=== PATIENT | male | born 1940 | race Caucasian/White ===

== ENCOUNTER 2021-03-28 21:19 | Inpatient (IN) | payer OTHER ==
[~2021-03-28] VITALS: Ht 165.1 cm; Wt 57.3 kg
[2021-03-28] MEDS ORDERED: ALBUTEROL SULF 2.5 MG/0.5ML(0.5%) NEB SOLN ONE (21:42)
[2021-03-28 22:08] LABS: Basophils # (auto) 0.1 10 ^3/uL (0-0.2); Basophils % (auto) 0.4 % (0.0-2.0); Eosinophils # (auto) 0.1 10 ^3/uL (0-0.8); Eosinophils % (auto) 0.4 % (0.0-7.0); Hematocrit 44.4 % (41.0-53.0); Hemoglobin 14.7 g/dL (13.5-17.5); Lymphocytes # (auto) 4.2 10 ^3/uL (0.4-5.4); Lymphocytes % (auto) 21.1 % (10.0-50.0); Mean Corpuscular Hemoglobin 31.4 pg (28.0-32.0); Mean Corpuscular Hgb Conc. 33.2 g/dL (32.0-36.0); Mean Corpuscular Volume 94.8 fL (80.0-100.0); Monocytes # (auto) 1.4 10 ^3/uL (0-1.3); Neutrophils # (auto) 14.2 10 ^3/uL (1.6-8.6); Neutrophils % (auto) 71.1 % (37.0-80.0); Red Blood Cells 4.68 10^6/uL (4.5-5.90); Red Cell Distribution Width 15.2 % (11.8-14.3); White Blood Cell 19.9 10^3/uL (4.4-10.8)
[2021-03-28 22:15] LABS: INR 1.06 (0.9-1.15); Partial Thromboplastin Time 25.4 sec (23.0-31.2)
[2021-03-28] MEDS ORDERED: cefTRIAXone 1GM/50ML D5W 50 ML IV ONE ×2 (22:15→22:17)
[2021-03-28] MEDS ORDERED: methylPREDNISolone SOD SUCC 125 MG/2 ML VL IV ONE (22:15)
[2021-03-28] MEDS ORDERED: methylPREDNISolone SOD SUCC 125 MG/2 ML VL ONE (22:16)
[2021-03-28 22:20] LABS: Albumin 3.2 g/dL (3.4-5.0); Calcium 8.7 mg/dL (8.5-10.1); Magnesium 2.7 mg/dL (1.6-2.6)
[2021-03-28 22:25] LABS: BUN/Creatinine Ratio 12.9; Bilirubin, Total 0.8 mg/dL (0.2-1.0); Total Protein 6.8 g/dL (6.4-8.2)
[2021-03-28] MEDS: MAGNESIUM SULFATE 1GM/100ML 100 ML IV SCH (23:45)
[2021-03-29] VITALS (57 sets, daily range): BP systolic 82–139; BP diastolic 41–74
[2021-03-29] MEDS ORDERED: SUCCINYLCHOLINE CHLORIDE 20 MG/ML 10ML VIAL IV ONE (00:45)
[2021-03-29] MEDS ORDERED: ETOMIDATE (2MG/ML) 20ML VIAL IV ONE (00:45)
[2021-03-29] MEDS: MAGNESIUM SULFATE 1GM/100ML 100 ML IV SCH (00:45)
[2021-03-29] MEDS: MIDAZOLAM DRIP 50 mg/50mL 50 ML IV SCH ×3 (00:45→20:37)
[2021-03-29] MEDS ORDERED: NOREPINEPHRINE 8 MG/250ML KIT 250 ML IV ONE (01:48)
[2021-03-29] MEDS: PROPOFOL 100 ML IV SCH (02:22)
[2021-03-29] MEDS: NOREPINEPHRINE 8 MG/250ML KIT 250 ML IV SCH ×2 (02:22→20:38)
[2021-03-29] MEDS ORDERED: SODIUM CHLORIDE 0.9% 1,000 ML IV SCH (02:30)
[2021-03-29] MEDS ORDERED: DEXTROSE (50%) 50ML SYRG IV PRN (02:30)
[2021-03-29] MEDS ORDERED: NITROGLYCERIN 0.4 MG SL TAB SL PRN (02:30)
[2021-03-29] MEDS ORDERED: MORPHINE SULFATE INJECTION 2 MG/ML SYRG IV PRN (02:30)
[2021-03-29] MEDS ORDERED: ONDANSETRON HCL 4 MG/2 ML VIAL IV PRN (02:30)
[2021-03-29] MEDS: AZITHROMYCIN 500MG/ 250ML 250 ML IV SCH (03:00)
[2021-03-29] MEDS ORDERED: AMIODARONE 450mg/250ml AE 250 ML IV ONE (04:03)
[2021-03-29] MEDS ORDERED: AMIODARONE 450mg/250ml AE 250 ML IV SCH (04:15)
[2021-03-29] MEDS ORDERED: HEPARIN SODIUM (PORCINE) 5000 UNITS/ML 1ML VIAL SC ONE (04:15)
[2021-03-29 06:57] LABS: Basophils # (auto) 0 10 ^3/uL (0-0.2); Basophils % (auto) 0.1 % (0.0-2.0); Eosinophils # (auto) 0 10 ^3/uL (0-0.8); Hematocrit 42.5 % (41.0-53.0); Hemoglobin 13.9 g/dL (13.5-17.5); Lymphocytes # (auto) 0.6 10 ^3/uL (0.4-5.4); Lymphocytes % (auto) 2.6 % (10.0-50.0); Mean Corpuscular Hemoglobin 31.1 pg (28.0-32.0); Mean Corpuscular Hgb Conc. 32.8 g/dL (32.0-36.0); Mean Corpuscular Volume 94.8 fL (80.0-100.0); Monocytes # (auto) 0.8 10 ^3/uL (0-1.3); Monocytes % (auto) 3.2 % (0.0-12.0); Neutrophils # (auto) 22.5 10 ^3/uL (1.6-8.6); Neutrophils % (auto) 94.1 % (37.0-80.0); Red Blood Cells 4.48 10^6/uL (4.5-5.90); Red Cell Distribution Width 15.2 % (11.8-14.3)
[2021-03-29 07:12] LABS: Albumin 3.1 g/dL (3.4-5.0); BUN/Creatinine Ratio 15.2; Potassium 4.4 mmol/L (3.5-5.1)
[2021-03-29 07:15] LABS: Bilirubin, Total 0.8 mg/dL (0.2-1.0); Total Protein 6.2 g/dL (6.4-8.2)
[2021-03-29 07:40] LABS: Urine Bacteria NONE SEEN /hpf (None Seen); Urine Blood 1+ /uL (Negative); Urine Budding Yeast FEW /hpf (None Seen); Urine Hyaline Cast FEW /lpf (0 - 2); Urine Specific Gravity 1.017 (1.001-1.035); Urine WBC 38 /hpf (0 - 3)
[2021-03-29] MEDS: ACCU-CHEK COMFORT CURVE STRIP VI SCH ×4 (08:02→22:00)
[2021-03-29] MEDS: InsuLIN REG 1unit/0.01ml Soln (100units/ml) SC SCH ×4 (09:00→20:30)
[2021-03-29] MEDS ORDERED: HEPARIN SODIUM (PORCINE) 5000 UNITS/ML 1ML VIAL SC SCH ×2 (10:00→22:00)
[2021-03-29] MEDS: AMIODARONE 450mg/250ml AE 250 ML IV SCH (11:31)
[2021-03-29] MEDS: FAMOTIDINE (10MG/ML) 2ML VL IV SCH ×2 (11:32→21:11)
[2021-03-29] MEDS: SODIUM CHLORIDE 0.9% 1,000 ML IV SCH (14:37)
[2021-03-30] VITALS (96 sets, daily range): BP systolic 97–136; BP diastolic 44–73
[2021-03-30] MEDS: MIDAZOLAM DRIP 50 mg/50mL 50 ML IV SCH ×5 (00:23→23:45)
[2021-03-30] MEDS: PROPOFOL 100 ML IV SCH ×2 (00:26→21:33)
[2021-03-30] MEDS: AMIODARONE 450mg/250ml AE 250 ML IV SCH ×2 (03:09→16:10)
[2021-03-30] MEDS: NOREPINEPHRINE 8 MG/250ML KIT 250 ML IV SCH (03:10)
[2021-03-30] MEDS: SODIUM CHLORIDE 0.9% 1,000 ML IV SCH ×2 (03:15→16:10)
[2021-03-30] MEDS: AZITHROMYCIN 500MG/ 250ML 250 ML IV SCH (03:29)
[2021-03-30] MEDS: ACCU-CHEK COMFORT CURVE STRIP VI SCH ×4 (04:30→21:24)
[2021-03-30] MEDS: InsuLIN REG 1unit/0.01ml Soln (100units/ml) SC SCH ×4 (05:36→21:24)
[2021-03-30 07:21] LABS: Basophils # (auto) 0.1 10 ^3/uL (0-0.2); Basophils % (auto) 0.4 % (0.0-2.0); Eosinophils # (auto) 0 10 ^3/uL (0-0.8); Hematocrit 39.1 % (41.0-53.0); Hemoglobin 13.5 g/dL (13.5-17.5); Lymphocytes # (auto) 0.7 10 ^3/uL (0.4-5.4); Lymphocytes % (auto) 3.1 % (10.0-50.0); Mean Corpuscular Hemoglobin 32.1 pg (28.0-32.0); Mean Corpuscular Hgb Conc. 34.6 g/dL (32.0-36.0); Mean Corpuscular Volume 92.8 fL (80.0-100.0); Monocytes # (auto) 1.1 10 ^3/uL (0-1.3); Monocytes % (auto) 5.4 % (0.0-12.0); Neutrophils # (auto) 19.1 10 ^3/uL (1.6-8.6); Neutrophils % (auto) 91.1 % (37.0-80.0); Nucleated Red Blood Cells % 0.1 %; Red Blood Cells 4.21 10^6/uL (4.5-5.90); Red Cell Distribution Width 15.2 % (11.8-14.3)
[2021-03-30 07:41] LABS: Potassium 4.1 mmol/L (3.5-5.1)
[2021-03-30 07:46] LABS: Albumin 2.7 g/dL (3.4-5.0); BUN/Creatinine Ratio 18.1; Calcium 7.7 mg/dL (8.5-10.1)
[2021-03-30 07:49] LABS: Bilirubin, Total 0.4 mg/dL (0.2-1.0)
[2021-03-30] MEDS: ACETAMINOPHEN 650 MG RECT SUPP PR PRN (09:06)
[2021-03-30] MEDS: FAMOTIDINE (10MG/ML) 2ML VL IV SCH ×2 (09:06→21:23)
[2021-03-30] MEDS ORDERED: VANCOMYCIN PER PHARMACY 0 MG IV SCH (15:15)
[2021-03-30] MEDS ORDERED: VANCOMYCIN 1GM/250ML 250 ML IV ONE (15:15)
[2021-03-31] VITALS (89 sets, daily range): BP systolic 89–138; BP diastolic 44–63
[2021-03-31] MEDS: SODIUM CHLORIDE 0.9% 1,000 ML IV SCH ×2 (04:15→18:00)
[2021-03-31 04:26] LABS: Basophils # (auto) 0 10 ^3/uL (0-0.2); Basophils % (auto) 0.2 % (0.0-2.0); Eosinophils # (auto) 0 10 ^3/uL (0-0.8); Hemoglobin 13.2 g/dL (13.5-17.5); Lymphocytes # (auto) 0.7 10 ^3/uL (0.4-5.4); Mean Corpuscular Hemoglobin 31.3 pg (28.0-32.0); Mean Corpuscular Hgb Conc. 33.7 g/dL (32.0-36.0); Mean Corpuscular Volume 92.9 fL (80.0-100.0); Monocytes # (auto) 1.5 10 ^3/uL (0-1.3); Monocytes % (auto) 8.5 % (0.0-12.0); Neutrophils # (auto) 15.4 10 ^3/uL (1.6-8.6); Neutrophils % (auto) 87.3 % (37.0-80.0); Red Cell Distribution Width 15.4 % (11.8-14.3); White Blood Cell 17.6 10^3/uL (4.4-10.8)
[2021-03-31 05:43] LABS: Potassium 3.8 mmol/L (3.5-5.1)
[2021-03-31 05:44] LABS: Bilirubin, Total 0.4 mg/dL (0.2-1.0); Calcium 7.3 mg/dL (8.5-10.1); Total Protein 5.3 g/dL (6.4-8.2)
[2021-03-31 05:45] LABS: Albumin 2.3 g/dL (3.4-5.0); Magnesium 3.1 mg/dL (1.6-2.6)
[2021-03-31] MEDS: MIDAZOLAM DRIP 50 mg/50mL 50 ML IV SCH ×3 (05:55→23:05)
[2021-03-31] MEDS: ACCU-CHEK COMFORT CURVE STRIP VI SCH ×4 (05:58→22:09)
[2021-03-31] MEDS: InsuLIN REG 1unit/0.01ml Soln (100units/ml) SC SCH ×4 (06:07→22:00)
[2021-03-31] MEDS: HEPARIN SODIUM (PORCINE) 5000 UNITS/ML 1ML VIAL SC SCH ×2 (10:00→22:14)
[2021-03-31] MEDS: AZITHROMYCIN 500MG/ 250ML 250 ML IV SCH (10:51)
[2021-03-31] MEDS: FAMOTIDINE (10MG/ML) 2ML VL IV SCH ×2 (10:51→22:09)
[2021-03-31 11:36] LABS: Sodium Urine 48 mmol/L (40-220)
[2021-03-31 11:38] LABS: Creatinine, Urine 88 mg/dL (30.0-125.0); Protein, Urine 25.7 mg/dL (0.0-11.9)
[2021-03-31] MEDS ORDERED: IODIXANOL 320MG/ML 100ML BTL IV ONE ×2 (11:38→13:16)
[2021-03-31] MEDS ORDERED: HEPARIN IN NS 1000Units/500mL 1,500 ML ONE (11:38)
[2021-03-31] MEDS ORDERED: LIDOCAINE 2%HCL (LOCAL ANESTH.) INJ 20ML MDV ONE (11:38)
[2021-03-31] MEDS ORDERED: VERAPAMIL 2.5MG/ML INJ 2ML VIAL IV ONE (12:12)
[2021-03-31] MEDS ORDERED: NITROGLYCERIN 5MG/ML 10ML VIAL IV ONE (12:12)
[2021-03-31] MEDS ORDERED: HEPARIN SODIUM (PORCINE) 5000 UNITS/ML 1ML VIAL ONE (12:12)
[2021-03-31] MEDS ORDERED: SODIUM CHL 0.9% 50 ML ONE (12:18)
[2021-03-31] MEDS ORDERED: ANGIOMAX 250 MG VIAL IV ONE (12:18)
[2021-03-31] MEDS ORDERED: VANCOMYCIN 1GM/250ML 250 ML IV SCH (16:00)
[2021-03-31] MEDS: PROPOFOL 100 ML IV SCH (18:34)
[2021-03-31] MEDS: AMIODARONE 450mg/250ml AE 250 ML IV SCH ×2 (21:15→22:15)
[2021-04-01] VITALS (104 sets, daily range): BP systolic 68–135; BP diastolic 24–73
[2021-04-01] MEDS: PROPOFOL 100 ML IV SCH ×2 (00:52→12:20)
[2021-04-01] MEDS: NOREPINEPHRINE 8 MG/250ML KIT 250 ML IV SCH (01:45)
[2021-04-01 04:58] LABS: Hematocrit 36.8 % (41.0-53.0); Hemoglobin 12.6 g/dL (13.5-17.5); Mean Corpuscular Hemoglobin 31.8 pg (28.0-32.0); Mean Corpuscular Hgb Conc. 34.2 g/dL (32.0-36.0); Mean Corpuscular Volume 92.8 fL (80.0-100.0); Red Blood Cells 3.96 10^6/uL (4.5-5.90); Red Cell Distribution Width 15.5 % (11.8-14.3); White Blood Cell 16.5 10^3/uL (4.4-10.8)
[2021-04-01 05:16] LABS: Albumin 2.2 g/dL (3.4-5.0); Calcium 7.3 mg/dL (8.5-10.1); Magnesium 2.6 mg/dL (1.6-2.6); Potassium 3.6 mmol/L (3.5-5.1)
[2021-04-01 05:19] LABS: BUN/Creatinine Ratio 22.8; Bilirubin, Total 0.6 mg/dL (0.2-1.0); Phosphorus 1.4 mg/dL (2.5-4.90); Total Protein 5.2 g/dL (6.4-8.2)
[2021-04-01 05:21] LABS: Basophils % (manual) 0 (0.0-2.0); Blast Cells 0; Eosinophils % (manual) 0 (0-7); Myelocytes % 0; Promyelocytes % 0; Reactive Lymphocytes 0
[2021-04-01] MEDS: SODIUM CHLORIDE 0.9% 1,000 ML IV SCH ×3 (06:28→21:43)
[2021-04-01] MEDS: InsuLIN REG 1unit/0.01ml Soln (100units/ml) SC SCH ×4 (06:40→21:35)
[2021-04-01] MEDS: ACCU-CHEK COMFORT CURVE STRIP VI SCH ×4 (06:40→21:35)
[2021-04-01 06:54] LABS: Band Neutrophils % (manual) 8; Lymphocytes % (manual) 11 (10.0-50.0); Metamyelocytes % 1; Monocytes % (manual) 6 (0-12)
[2021-04-01] MEDS: FAMOTIDINE (10MG/ML) 2ML VL IV SCH ×2 (10:43→21:36)
[2021-04-01] MEDS: AZITHROMYCIN 500MG/ 250ML 250 ML IV SCH (10:44)
[2021-04-01] MEDS: HEPARIN SODIUM (PORCINE) 5000 UNITS/ML 1ML VIAL SC SCH ×2 (10:45→21:39)
[2021-04-01] MEDS ORDERED: ASPI1TAB20 PO (10:59)
[2021-04-01] MEDS ORDERED: PRE5T PO (10:59)
[2021-04-01] MEDS ORDERED: IPRIH INH (10:59)
[2021-04-01] MEDS ORDERED: CAR125T PO (10:59)
[2021-04-01] MEDS ORDERED: SIMV-13 PO (10:59)
[2021-04-01] MEDS ORDERED: ISOS60TA24 PO (10:59)
[2021-04-01] MEDS ORDERED: ALEN70TA74 PO (10:59)
[2021-04-01] MEDS ORDERED: TIOT17SP IN (10:59)
[2021-04-01] MEDS ORDERED: POTASSIUM PHOSPHATE 44 MEQ in D5W 5% 250 ML IV ONE (11:00)
[2021-04-01] MEDS: AMIODARONE 450mg/250ml AE 250 ML IV SCH (13:15)
[2021-04-01] MEDS: ACETAMINOPHEN 650 MG RECT SUPP PR PRN (16:47)
[2021-04-01] MEDS ORDERED: VANCOMYCIN 1GM/250ML 250 ML IV SCH (18:00)
[2021-04-02] VITALS (95 sets, daily range): BP systolic 89–157; BP diastolic 35–69
[2021-04-02] MEDS: MIDAZOLAM DRIP 50 mg/50mL 50 ML IV SCH (01:00)
[2021-04-02] MEDS: NOREPINEPHRINE 8 MG/250ML KIT 250 ML IV SCH (01:45)
[2021-04-02] MEDS: AMIODARONE 450mg/250ml AE 250 ML IV SCH (04:15)
[2021-04-02 05:04] LABS: Basophils # (auto) 0.1 10 ^3/uL (0-0.2); Basophils % (auto) 0.4 % (0.0-2.0); Eosinophils # (auto) 0 10 ^3/uL (0-0.8); Eosinophils % (auto) 0.2 % (0.0-7.0); Hematocrit 34.7 % (41.0-53.0); Hemoglobin 11.9 g/dL (13.5-17.5); Lymphocytes # (auto) 0.9 10 ^3/uL (0.4-5.4); Lymphocytes % (auto) 5.7 % (10.0-50.0); Mean Corpuscular Hemoglobin 31.9 pg (28.0-32.0); Mean Corpuscular Hgb Conc. 34.3 g/dL (32.0-36.0); Mean Corpuscular Volume 93.1 fL (80.0-100.0); Monocytes % (auto) 6.3 % (0.0-12.0); Neutrophils # (auto) 13.6 10 ^3/uL (1.6-8.6); Neutrophils % (auto) 87.4 % (37.0-80.0); Red Blood Cells 3.73 10^6/uL (4.5-5.90); Red Cell Distribution Width 15.4 % (11.8-14.3); White Blood Cell 15.6 10^3/uL (4.4-10.8)
[2021-04-02 05:30] LABS: BUN/Creatinine Ratio 24.7; Calcium 7.3 mg/dL (8.5-10.1); Magnesium 2.6 mg/dL (1.6-2.6); Potassium 3.9 mmol/L (3.5-5.1)
[2021-04-02] MEDS: ACCU-CHEK COMFORT CURVE STRIP VI SCH ×4 (06:31→21:50)
[2021-04-02] MEDS: InsuLIN REG 1unit/0.01ml Soln (100units/ml) SC SCH ×4 (06:31→21:50)
[2021-04-02 08:11] LABS: Cholesterol 121 mg/dL (< 200)
[2021-04-02 08:14] LABS: HDL Cholesterol 31 mg/dL (40-59); LDL Cholesterol 65 mg/dL (< 100); Triglycerides 130 mg/dL (< 150)
[2021-04-02] MEDS ORDERED: CLOPIDOGREL BISULFATE 75 MG TAB PO SCH (10:00)
[2021-04-02] MEDS: FAMOTIDINE (10MG/ML) 2ML VL IV SCH ×2 (10:19→21:26)
[2021-04-02] MEDS: SODIUM CHLORIDE 0.9% 1,000 ML IV SCH (10:19)
[2021-04-02] MEDS: AZITHROMYCIN 500MG/ 250ML 250 ML IV SCH (10:20)
[2021-04-02] MEDS: ASPirin 81 mg TAB PO SCH (10:20)
[2021-04-02] MEDS: HEPARIN SODIUM (PORCINE) 5000 UNITS/ML 1ML VIAL SC SCH ×2 (10:21→21:33)
[2021-04-02] MEDS ORDERED: hydrALAZINE HCL 20 MG/ML VL IV PRN (11:15)
[2021-04-02] MEDS ORDERED: CARVEDILOL 12.5 MG TAB PO ONE (11:15)
[2021-04-02] MEDS ORDERED: AMIODARONE HCL 200 MG TAB PO ONE (11:15)
[2021-04-02] MEDS: DOXYCYCLINE 100MG/250ML 250 ML IV SCH ×2 (12:23→21:26)
[2021-04-02] MEDS ORDERED: POTASSIUM PHOSPHATE 22 MEQ in SODIUM CHL 0.9% 100 ML IV ONE (14:30)
[2021-04-02] MEDS: CARVEDILOL 12.5 MG TAB PO SCH (21:32)
[2021-04-02] MEDS: ATORVASTATIN 20 MG TAB PO SCH (21:32)
[2021-04-02] MEDS: AMIODARONE HCL 200 MG TAB PO SCH (22:00)
[2021-04-03] VITALS (71 sets, daily range): BP systolic 107–143; BP diastolic 45–63
[2021-04-03] MEDS: PROPOFOL 100 ML IV SCH (00:45)
[2021-04-03] MEDS: MIDAZOLAM DRIP 50 mg/50mL 50 ML IV SCH (00:45)
[2021-04-03] MEDS: NOREPINEPHRINE 8 MG/250ML KIT 250 ML IV SCH (01:45)
[2021-04-03 04:28] LABS: Basophils # (auto) 0 10 ^3/uL (0-0.2); Basophils % (auto) 0.2 % (0.0-2.0); Eosinophils # (auto) 0.1 10 ^3/uL (0-0.8); Eosinophils % (auto) 0.7 % (0.0-7.0); Hematocrit 31.8 % (41.0-53.0); Hemoglobin 11.2 g/dL (13.5-17.5); Mean Corpuscular Hemoglobin 32.9 pg (28.0-32.0); Mean Corpuscular Hgb Conc. 35.3 g/dL (32.0-36.0); Mean Corpuscular Volume 93.1 fL (80.0-100.0); Monocytes # (auto) 0.7 10 ^3/uL (0-1.3); Monocytes % (auto) 6.1 % (0.0-12.0); Neutrophils # (auto) 10.3 10 ^3/uL (1.6-8.6); Red Blood Cells 3.41 10^6/uL (4.5-5.90); Red Cell Distribution Width 15.4 % (11.8-14.3); White Blood Cell 12.1 10^3/uL (4.4-10.8)
[2021-04-03 04:50] LABS: BUN/Creatinine Ratio 30.3; Calcium 7.8 mg/dL (8.5-10.1); Magnesium 2.4 mg/dL (1.6-2.6)
[2021-04-03] MEDS: SODIUM CHLORIDE 0.9% 1,000 ML IV SCH (04:50)
[2021-04-03] MEDS: InsuLIN REG 1unit/0.01ml Soln (100units/ml) SC SCH ×4 (06:15→21:57)
[2021-04-03] MEDS: ACCU-CHEK COMFORT CURVE STRIP VI SCH ×4 (06:15→21:57)
[2021-04-03] MEDS: CARVEDILOL 12.5 MG TAB PO SCH ×3 (10:00→21:36)
[2021-04-03] MEDS: ASPirin 81 mg TAB PO SCH (12:32)
[2021-04-03] MEDS: AMIODARONE HCL 200 MG TAB PO SCH ×2 (12:36→21:35)
[2021-04-03] MEDS: HEPARIN SODIUM (PORCINE) 5000 UNITS/ML 1ML VIAL SC SCH ×2 (12:38→21:38)
[2021-04-03] MEDS ORDERED: FUROSEMIDE 40 MG/4 ML VIAL IV ONE (13:00)
[2021-04-03] MEDS ORDERED: SODIUM CHLORIDE 0.9% 1,000 ML IV SCH (13:00)
[2021-04-03] MEDS: FAMOTIDINE (10MG/ML) 2ML VL IV SCH ×2 (13:08→21:35)
[2021-04-03] MEDS: DOXYCYCLINE 100MG/250ML 250 ML IV SCH ×2 (13:09→21:35)
[2021-04-03 17:14] LABS: Folate (Folic Acid) 12.99 ng/mL (5.38-24)
[2021-04-03] MEDS: ATORVASTATIN 20 MG TAB PO SCH (21:36)
[2021-04-04] VITALS (94 sets, daily range): BP systolic 108–182; BP diastolic 44–92
[2021-04-04] MEDS: MIDAZOLAM DRIP 50 mg/50mL 50 ML IV SCH (00:45)
[2021-04-04] MEDS: PROPOFOL 100 ML IV SCH (00:45)
[2021-04-04] MEDS: NOREPINEPHRINE 8 MG/250ML KIT 250 ML IV SCH (01:45)
[2021-04-04 03:54] LABS: Hemoglobin 11.3 g/dL (13.5-17.5); Mean Corpuscular Hemoglobin 31.9 pg (28.0-32.0); Mean Corpuscular Hgb Conc. 34.2 g/dL (32.0-36.0); Mean Corpuscular Volume 93.3 fL (80.0-100.0); Red Blood Cells 3.54 10^6/uL (4.5-5.90); Red Cell Distribution Width 15.1 % (11.8-14.3)
[2021-04-04 04:07] LABS: Basophils % (manual) 0 (0.0-2.0); Blast Cells 0; Myelocytes % 0; Promyelocytes % 0; Reactive Lymphocytes 0
[2021-04-04 04:11] LABS: BUN/Creatinine Ratio 31.3; Calcium 8.1 mg/dL (8.5-10.1); Magnesium 2.1 mg/dL (1.6-2.6); Potassium 3.8 mmol/L (3.5-5.1)
[2021-04-04 04:48] LABS: Band Neutrophils % (manual) 2; Eosinophils % (manual) 1 (0-7); Lymphocytes % (manual) 11 (10.0-50.0); Metamyelocytes % 1; Monocytes % (manual) 7 (0-12)
[2021-04-04] MEDS: InsuLIN REG 1unit/0.01ml Soln (100units/ml) SC SCH ×3 (06:00→18:00)
[2021-04-04] MEDS: ACCU-CHEK COMFORT CURVE STRIP VI SCH ×3 (06:07→20:05)
[2021-04-04] MEDS: FAMOTIDINE (10MG/ML) 2ML VL IV SCH ×2 (11:41→22:43)
[2021-04-04] MEDS: DOXYCYCLINE 100MG/250ML 250 ML IV SCH ×2 (11:42→22:42)
[2021-04-04] MEDS: ASPirin 81 mg TAB PO SCH (11:42)
[2021-04-04] MEDS: AMIODARONE HCL 200 MG TAB PO SCH ×2 (11:43→22:43)
[2021-04-04] MEDS: HEPARIN SODIUM (PORCINE) 5000 UNITS/ML 1ML VIAL SC SCH ×2 (11:47→22:43)
[2021-04-04] MEDS: CARVEDILOL 12.5 MG TAB PO SCH ×2 (11:49→22:44)
[2021-04-04] MEDS ORDERED: Jevity 1.2 Cal/Fiber 1 Liter GT SCH (12:00)
[2021-04-04] MEDS: ATORVASTATIN 20 MG TAB PO SCH (22:44)
[2021-04-04] MEDS: ACETAMINOPHEN 650 MG RECT SUPP PR PRN (22:45)
[2021-04-05] VITALS (103 sets, daily range): BP systolic 116–181; BP diastolic 33–82
[2021-04-05] MEDS: MIDAZOLAM DRIP 50 mg/50mL 50 ML IV SCH (00:45)
[2021-04-05] MEDS: PROPOFOL 100 ML IV SCH (00:45)
[2021-04-05] MEDS: NOREPINEPHRINE 8 MG/250ML KIT 250 ML IV SCH (01:45)
[2021-04-05 03:36] LABS: Hematocrit 32.9 % (41.0-53.0); Hemoglobin 11.2 g/dL (13.5-17.5); Mean Corpuscular Hemoglobin 31.5 pg (28.0-32.0); Mean Corpuscular Hgb Conc. 33.9 g/dL (32.0-36.0); Red Blood Cells 3.54 10^6/uL (4.5-5.90); Red Cell Distribution Width 14.9 % (11.8-14.3); White Blood Cell 10.6 10^3/uL (4.4-10.8)
[2021-04-05 03:55] LABS: Albumin 1.7 g/dL (3.4-5.0); BUN/Creatinine Ratio 32.8; Calcium 8.2 mg/dL (8.5-10.1); Magnesium 1.9 mg/dL (1.6-2.6)
[2021-04-05 03:58] LABS: Bilirubin, Total 0.7 mg/dL (0.2-1.0); Total Protein 5.2 g/dL (6.4-8.2)
[2021-04-05 04:12] LABS: Basophils % (manual) 0 (0.0-2.0); Blast Cells 0; Promyelocytes % 0; Reactive Lymphocytes 0
[2021-04-05] MEDS: ACCU-CHEK COMFORT CURVE STRIP VI SCH ×3 (06:00→12:00)
[2021-04-05] MEDS: InsuLIN REG 1unit/0.01ml Soln (100units/ml) SC SCH ×4 (06:00→17:36)
[2021-04-05 10:57] LABS: Band Neutrophils % (manual) 6; Eosinophils % (manual) 1 (0-7); Lymphocytes % (manual) 8 (10.0-50.0); Metamyelocytes % 1; Monocytes % (manual) 5 (0-12); Myelocytes % 3
[2021-04-05] MEDS: FAMOTIDINE (10MG/ML) 2ML VL IV SCH ×2 (15:47→21:43)
[2021-04-05] MEDS: DOXYCYCLINE 100MG/250ML 250 ML IV SCH ×2 (15:48→21:39)
[2021-04-05] MEDS: ASPirin 81 mg TAB PO SCH (15:48)
[2021-04-05] MEDS: CARVEDILOL 12.5 MG TAB PO SCH ×2 (15:49→21:43)
[2021-04-05] MEDS: HEPARIN SODIUM (PORCINE) 5000 UNITS/ML 1ML VIAL SC SCH ×2 (15:53→21:42)
[2021-04-05] MEDS: AMIODARONE HCL 200 MG TAB PO SCH ×2 (15:55→21:43)
[2021-04-05] MEDS: ATORVASTATIN 20 MG TAB PO SCH (21:42)
[2021-04-06] VITALS (96 sets, daily range): BP systolic 99–183; BP diastolic 35–93
[2021-04-06] MEDS: InsuLIN REG 1unit/0.01ml Soln (100units/ml) SC SCH ×4 (00:30→17:31)
[2021-04-06] MEDS: PROPOFOL 100 ML IV SCH (00:45)
[2021-04-06] MEDS: MIDAZOLAM DRIP 50 mg/50mL 50 ML IV SCH (00:45)
[2021-04-06] MEDS: NOREPINEPHRINE 8 MG/250ML KIT 250 ML IV SCH (01:45)
[2021-04-06] MEDS: ACCU-CHEK COMFORT CURVE STRIP VI SCH ×4 (06:00→17:31)
[2021-04-06] MEDS: FAMOTIDINE (10MG/ML) 2ML VL IV SCH ×2 (10:56→22:31)
[2021-04-06] MEDS: DOXYCYCLINE 100MG/250ML 250 ML IV SCH ×2 (10:56→22:33)
[2021-04-06] MEDS: AMIODARONE HCL 200 MG TAB PO SCH ×2 (10:57→22:33)
[2021-04-06] MEDS: ASPirin 81 mg TAB PO SCH (10:57)
[2021-04-06] MEDS: HEPARIN SODIUM (PORCINE) 5000 UNITS/ML 1ML VIAL SC SCH ×2 (10:58→22:31)
[2021-04-06] MEDS: CARVEDILOL 12.5 MG TAB PO SCH (10:58)
[2021-04-06] MEDS: ENALAPRILAT 1.25 MG/ML-1ML VIAL IV PRN (18:38)
[2021-04-06] MEDS: ATORVASTATIN 20 MG TAB PO SCH (22:33)
[2021-04-07] VITALS (102 sets, daily range): BP systolic 88–151; BP diastolic 33–71
[2021-04-07] MEDS: MIDAZOLAM DRIP 50 mg/50mL 50 ML IV SCH (00:45)
[2021-04-07] MEDS: PROPOFOL 100 ML IV SCH (00:45)
[2021-04-07] MEDS: NOREPINEPHRINE 8 MG/250ML KIT 250 ML IV SCH (01:45)
[2021-04-07] MEDS: CARVEDILOL 12.5 MG TAB PO SCH ×3 (03:00→21:38)
[2021-04-07 04:46] LABS: BUN/Creatinine Ratio 32.4; Calcium 7.8 mg/dL (8.5-10.1); Potassium 4.5 mmol/L (3.5-5.1)
[2021-04-07 04:53] LABS: Hematocrit 32.7 % (41.0-53.0); Hemoglobin 11.2 g/dL (13.5-17.5); Mean Corpuscular Hemoglobin 31.7 pg (28.0-32.0); Mean Corpuscular Hgb Conc. 34.2 g/dL (32.0-36.0); Mean Corpuscular Volume 92.8 fL (80.0-100.0); Red Blood Cells 3.52 10^6/uL (4.5-5.90); Red Cell Distribution Width 15.1 % (11.8-14.3); White Blood Cell 12.5 10^3/uL (4.4-10.8)
[2021-04-07 05:23] LABS: Basophils % (manual) 0 (0.0-2.0); Blast Cells 0; Eosinophils % (manual) 0 (0-7); Promyelocytes % 0; Reactive Lymphocytes 0
[2021-04-07] MEDS: InsuLIN REG 1unit/0.01ml Soln (100units/ml) SC SCH ×5 (06:00→23:43)
[2021-04-07] MEDS: ACCU-CHEK COMFORT CURVE STRIP VI SCH ×5 (06:26→23:44)
[2021-04-07 06:38] LABS: Band Neutrophils % (manual) 18; Lymphocytes % (manual) 11 (10.0-50.0); Metamyelocytes % 2; Monocytes % (manual) 9 (0-12); Myelocytes % 2
[2021-04-07] MEDS: ASPirin 81 mg TAB PO SCH (09:49)
[2021-04-07] MEDS: FAMOTIDINE (10MG/ML) 2ML VL IV SCH ×2 (09:49→21:38)
[2021-04-07] MEDS: DOXYCYCLINE 100MG/250ML 250 ML IV SCH ×2 (09:50→21:37)
[2021-04-07] MEDS: AMIODARONE HCL 200 MG TAB PO SCH ×2 (10:00→21:39)
[2021-04-07] MEDS: HEPARIN SODIUM (PORCINE) 5000 UNITS/ML 1ML VIAL SC SCH ×2 (11:24→21:38)
[2021-04-07] MEDS: ATORVASTATIN 20 MG TAB PO SCH (21:38)
[2021-04-08] VITALS (98 sets, daily range): BP systolic 100–156; BP diastolic 31–68
[2021-04-08] MEDS: MIDAZOLAM DRIP 50 mg/50mL 50 ML IV SCH (00:45)
[2021-04-08] MEDS: PROPOFOL 100 ML IV SCH (00:45)
[2021-04-08] MEDS: NOREPINEPHRINE 8 MG/250ML KIT 250 ML IV SCH (01:45)
[2021-04-08 04:04] LABS: Hematocrit 32.3 % (41.0-53.0); Hemoglobin 10.9 g/dL (13.5-17.5); Mean Corpuscular Hemoglobin 31.3 pg (28.0-32.0); Mean Corpuscular Hgb Conc. 33.9 g/dL (32.0-36.0); Mean Corpuscular Volume 92.3 fL (80.0-100.0); Red Cell Distribution Width 14.9 % (11.8-14.3); White Blood Cell 13.8 10^3/uL (4.4-10.8)
[2021-04-08 04:21] LABS: Basophils % (manual) 0 (0.0-2.0); Blast Cells 0; Eosinophils % (manual) 0 (0-7); Myelocytes % 0; Promyelocytes % 0; Reactive Lymphocytes 0
[2021-04-08 04:25] LABS: BUN/Creatinine Ratio 32.4; Calcium 8.2 mg/dL (8.5-10.1); Potassium 4.4 mmol/L (3.5-5.1)
[2021-04-08] MEDS: InsuLIN REG 1unit/0.01ml Soln (100units/ml) SC SCH ×3 (06:00→18:00)
[2021-04-08] MEDS: ACCU-CHEK COMFORT CURVE STRIP VI SCH ×3 (06:08→18:00)
[2021-04-08 06:57] LABS: Band Neutrophils % (manual) 18; Lymphocytes % (manual) 10 (10.0-50.0); Metamyelocytes % 1; Monocytes % (manual) 7 (0-12)
[2021-04-08] MEDS: FAMOTIDINE (10MG/ML) 2ML VL IV SCH ×2 (10:58→22:28)
[2021-04-08] MEDS: ASPirin 81 mg TAB PO SCH (10:58)
[2021-04-08] MEDS: HEPARIN SODIUM (PORCINE) 5000 UNITS/ML 1ML VIAL SC SCH ×2 (10:59→22:29)
[2021-04-08] MEDS: DOXYCYCLINE 100MG/250ML 250 ML IV SCH ×2 (12:13→22:30)
[2021-04-08] MEDS: MEROPENEM 1GM IVPB 100 ML IV SCH ×2 (15:12→21:51)
[2021-04-08] MEDS: MORPHINE SULFATE INJECTION 2 MG/ML SYRG IV PRN (21:00)
[2021-04-08] MEDS: CARVEDILOL 12.5 MG TAB PO SCH (21:51)
[2021-04-08] MEDS: AMIODARONE HCL 200 MG TAB PO SCH (22:00)
[2021-04-08] MEDS: ATORVASTATIN 20 MG TAB PO SCH (22:30)
[2021-04-09] VITALS (64 sets, daily range): BP systolic 102–206; BP diastolic 35–72
[2021-04-09] MEDS: ACCU-CHEK COMFORT CURVE STRIP VI SCH ×4 (00:07→17:29)
[2021-04-09] MEDS: PROPOFOL 100 ML IV SCH (00:45)
[2021-04-09] MEDS: NOREPINEPHRINE 8 MG/250ML KIT 250 ML IV SCH (01:45)
[2021-04-09 05:01] LABS: Hematocrit 32.4 % (41.0-53.0); Hemoglobin 10.9 g/dL (13.5-17.5); Mean Corpuscular Hemoglobin 31.2 pg (28.0-32.0); Mean Corpuscular Hgb Conc. 33.7 g/dL (32.0-36.0); Mean Corpuscular Volume 92.7 fL (80.0-100.0); Red Blood Cells 3.49 10^6/uL (4.5-5.90); Red Cell Distribution Width 14.9 % (11.8-14.3); White Blood Cell 11.5 10^3/uL (4.4-10.8)
[2021-04-09 05:17] LABS: Basophils % (manual) 0 (0.0-2.0); Blast Cells 0; Eosinophils % (manual) 0 (0-7); Metamyelocytes % 0; Myelocytes % 0; Promyelocytes % 0; Reactive Lymphocytes 0
[2021-04-09 05:23] LABS: BUN/Creatinine Ratio 27.4; Calcium 7.8 mg/dL (8.5-10.1); Magnesium 1.8 mg/dL (1.6-2.6); Potassium 4.2 mmol/L (3.5-5.1)
[2021-04-09] MEDS: InsuLIN REG 1unit/0.01ml Soln (100units/ml) SC SCH ×4 (06:00→17:29)
[2021-04-09] MEDS: MEROPENEM 1GM IVPB 100 ML IV SCH ×2 (06:15→13:49)
[2021-04-09] MEDS: CARVEDILOL 12.5 MG TAB PO SCH ×2 (10:00→22:00)
[2021-04-09] MEDS: AMIODARONE HCL 200 MG TAB PO SCH (10:00)
[2021-04-09] MEDS: FAMOTIDINE (10MG/ML) 2ML VL IV SCH ×2 (10:10→22:48)
[2021-04-09] MEDS: ASPirin 81 mg TAB PO SCH (10:10)
[2021-04-09] MEDS: DOXYCYCLINE 100MG/250ML 250 ML IV SCH ×2 (10:10→22:45)
[2021-04-09] MEDS: HEPARIN SODIUM (PORCINE) 5000 UNITS/ML 1ML VIAL SC SCH ×2 (10:17→22:58)
[2021-04-09 10:20] LABS: Band Neutrophils % (manual) 2; Lymphocytes % (manual) 22 (10.0-50.0); Monocytes % (manual) 6 (0-12)
[2021-04-09] MEDS: ENALAPRILAT 1.25 MG/ML-1ML VIAL IV PRN (13:46)
[2021-04-09] MEDS ORDERED: LORazepam 2MG/ML-1ML VIAL ONE (15:19)
[2021-04-09] MEDS ORDERED: LORazepam 2MG/ML-1ML VIAL IM ONE (15:30)
[2021-04-09] MEDS ORDERED: hydrALAZINE HCL 20 MG/ML VL IV PRN (16:00)
[2021-04-09] MEDS ORDERED: MAGNESIUM SULFATE 1GM/100ML 100 ML IV ONE (16:00)
[2021-04-09] MEDS: ATORVASTATIN 20 MG TAB PO SCH (22:00)
[2021-04-09] MEDS ORDERED: FUROSEMIDE 40 MG/4 ML VIAL IV ONE (22:00)
[2021-04-10] VITALS (28 sets, daily range): BP systolic 93–170; BP diastolic 32–89
[2021-04-10] MEDS: MEROPENEM 1GM IVPB 100 ML IV SCH ×4 (00:09→14:32)
[2021-04-10] MEDS: PROPOFOL 100 ML IV SCH (00:45)
[2021-04-10] MEDS: ACCU-CHEK COMFORT CURVE STRIP VI SCH ×4 (00:45→18:17)
[2021-04-10] MEDS: NOREPINEPHRINE 8 MG/250ML KIT 250 ML IV SCH (01:45)
[2021-04-10 04:36] LABS: Hematocrit 33.2 % (41.0-53.0); Hemoglobin 11.4 g/dL (13.5-17.5); Mean Corpuscular Hemoglobin 31.4 pg (28.0-32.0); Mean Corpuscular Hgb Conc. 34.3 g/dL (32.0-36.0); Mean Corpuscular Volume 91.8 fL (80.0-100.0); Red Blood Cells 3.62 10^6/uL (4.5-5.90); Red Cell Distribution Width 14.8 % (11.8-14.3)
[2021-04-10 04:54] LABS: BUN/Creatinine Ratio 23.7; Calcium 8.3 mg/dL (8.5-10.1); Magnesium 2.4 mg/dL (1.6-2.6); Potassium 3.8 mmol/L (3.5-5.1)
[2021-04-10 05:09] LABS: Basophils % (manual) 0 (0.0-2.0); Blast Cells 0; Eosinophils % (manual) 0 (0-7); Metamyelocytes % 0; Promyelocytes % 0; Reactive Lymphocytes 0
[2021-04-10 06:26] LABS: Band Neutrophils % (manual) 11; Lymphocytes % (manual) 10 (10.0-50.0); Monocytes % (manual) 8 (0-12); Myelocytes % 1
[2021-04-10] MEDS: FUROSEMIDE 40 MG/4 ML VIAL IV SCH (06:44)
[2021-04-10] MEDS: InsuLIN REG 1unit/0.01ml Soln (100units/ml) SC SCH ×4 (06:48→18:00)
[2021-04-10] MEDS: FAMOTIDINE (10MG/ML) 2ML VL IV SCH ×2 (10:00→22:57)
[2021-04-10] MEDS: ISOSORBIDE MONONITRATE ER 60 MG TAB PO SCH (10:00)
[2021-04-10] MEDS: HEPARIN SODIUM (PORCINE) 5000 UNITS/ML 1ML VIAL SC SCH ×2 (10:00→22:57)
[2021-04-10] MEDS: DOXYCYCLINE 100MG/250ML 250 ML IV SCH ×2 (10:00→22:59)
[2021-04-10] MEDS: CARVEDILOL 12.5 MG TAB PO SCH ×2 (10:00→22:00)
[2021-04-10] MEDS: ASPirin 81 mg TAB PO SCH (10:00)
[2021-04-10] MEDS: MORPHINE SULFATE INJECTION 2 MG/ML SYRG IV PRN (14:32)
[2021-04-10] MEDS ORDERED: ALBUTEROL SULF 2.5 MG/0.5ML(0.5%) NEB SOLN NEB PRN (22:30)
[2021-04-10] MEDS ORDERED: IPRATROPIUM BROM 0.5 MG/2.5ML INH SOL NEB PRN (22:30)
[2021-04-10] MEDS: ATORVASTATIN 20 MG TAB PO SCH (22:56)
[2021-04-11] VITALS (18 sets, daily range): BP systolic 94–184; BP diastolic 45–82
[2021-04-11] MEDS: PROPOFOL 100 ML IV SCH (00:45)
[2021-04-11] MEDS: ACCU-CHEK COMFORT CURVE STRIP VI SCH ×4 (00:48→17:52)
[2021-04-11] MEDS: NOREPINEPHRINE 8 MG/250ML KIT 250 ML IV SCH (01:45)
[2021-04-11] MEDS: FUROSEMIDE 40 MG/4 ML VIAL IV SCH ×3 (05:53→17:47)
[2021-04-11] MEDS: InsuLIN REG 1unit/0.01ml Soln (100units/ml) SC SCH ×4 (05:54→17:47)
[2021-04-11] MEDS: MEROPENEM 1GM IVPB 100 ML IV SCH ×3 (05:54→21:40)
[2021-04-11] MEDS: ALBUTEROL SULF 2.5 MG/0.5ML(0.5%) NEB SOLN NEB PRN (06:26)
[2021-04-11] MEDS: IPRATROPIUM BROM 0.5 MG/2.5ML INH SOL NEB PRN (06:27)
[2021-04-11] MEDS: ISOSORBIDE MONONITRATE ER 60 MG TAB PO SCH (08:40)
[2021-04-11] MEDS: FAMOTIDINE (10MG/ML) 2ML VL IV SCH ×2 (10:00→21:40)
[2021-04-11] MEDS: CARVEDILOL 12.5 MG TAB PO SCH ×2 (10:00→22:00)
[2021-04-11] MEDS: ASPirin 81 mg TAB PO SCH (10:00)
[2021-04-11] MEDS: HEPARIN SODIUM (PORCINE) 5000 UNITS/ML 1ML VIAL SC SCH ×2 (10:00→21:28)
[2021-04-11] MEDS ORDERED: LISINOPRIL 10 MG TAB PO ONE (10:45)
[2021-04-11 11:30] LABS: Calcium 8.5 mg/dL (8.5-10.1); Potassium 3.8 mmol/L (3.5-5.1)
[2021-04-11 11:34] LABS: BUN/Creatinine Ratio 20.2; Bilirubin, Total 0.9 mg/dL (0.2-1.0)
[2021-04-11] MEDS: ATORVASTATIN 20 MG TAB PO SCH (21:40)
[2021-04-11] MEDS: LISINOPRIL 20 MG TAB PO SCH (22:09)
[2021-04-12] MEDS: ACCU-CHEK COMFORT CURVE STRIP VI SCH ×5 (00:16→23:46)
[2021-04-12 05:00] VITALS: BP 98/47
[2021-04-12 05:39] LABS: Hematocrit 36.9 % (41.0-53.0); Hemoglobin 12.1 g/dL (13.5-17.5); Mean Corpuscular Hemoglobin 30.7 pg (28.0-32.0); Mean Corpuscular Hgb Conc. 32.9 g/dL (32.0-36.0); Mean Corpuscular Volume 93.6 fL (80.0-100.0); Red Blood Cells 3.94 10^6/uL (4.5-5.90); Red Cell Distribution Width 14.7 % (11.8-14.3); White Blood Cell 16.1 10^3/uL (4.4-10.8)
[2021-04-12 05:59] LABS: Band Neutrophils % (manual) 0; Basophils % (manual) 0 (0.0-2.0); Blast Cells 0; Eosinophils % (manual) 0 (0-7); Metamyelocytes % 0; Promyelocytes % 0; Reactive Lymphocytes 0
[2021-04-12] MEDS: InsuLIN REG 1unit/0.01ml Soln (100units/ml) SC SCH ×5 (06:00→23:46)
[2021-04-12] MEDS: FUROSEMIDE 40 MG/4 ML VIAL IV SCH ×2 (06:00→18:28)
[2021-04-12 06:03] LABS: Potassium 3.8 mmol/L (3.5-5.1)
[2021-04-12 06:21] LABS: BUN/Creatinine Ratio 28.7; Calcium 8.7 mg/dL (8.5-10.1); Magnesium 2.5 mg/dL (1.6-2.6)
[2021-04-12] MEDS: MEROPENEM 1GM IVPB 100 ML IV SCH ×3 (06:24→22:05)
[2021-04-12 08:02] LABS: Lymphocytes % (manual) 12 (10.0-50.0); Monocytes % (manual) 8 (0-12); Myelocytes % 1
[2021-04-12 09:00] VITALS: BP 98/58
[2021-04-12] MEDS: HEPARIN SODIUM (PORCINE) 5000 UNITS/ML 1ML VIAL SC SCH ×2 (09:55→22:06)
[2021-04-12] MEDS: ISOSORBIDE MONONITRATE ER 60 MG TAB PO SCH (10:00)
[2021-04-12] MEDS: LISINOPRIL 20 MG TAB PO SCH ×2 (10:00→22:00)
[2021-04-12] MEDS: CARVEDILOL 12.5 MG TAB PO SCH ×2 (10:00→22:00)
[2021-04-12] MEDS: ASPirin 81 mg TAB PO SCH (10:06)
[2021-04-12] MEDS: FAMOTIDINE (10MG/ML) 2ML VL IV SCH ×2 (10:06→22:05)
[2021-04-12 13:00] VITALS: BP 99/48
[2021-04-12 17:24] VITALS: BP 102/52
[2021-04-12 22:00] VITALS: BP 112/59
[2021-04-12] MEDS: ATORVASTATIN 20 MG TAB PO SCH (22:05)
[2021-04-13 05:00] VITALS: BP 95/63
[2021-04-13] MEDS: InsuLIN REG 1unit/0.01ml Soln (100units/ml) SC SCH ×4 (06:00→23:45)
[2021-04-13] MEDS: IPRATROPIUM BROM 0.5 MG/2.5ML INH SOL NEB PRN (06:10)
[2021-04-13] MEDS: ALBUTEROL SULF 2.5 MG/0.5ML(0.5%) NEB SOLN NEB PRN (06:10)
[2021-04-13] MEDS: ACCU-CHEK COMFORT CURVE STRIP VI SCH ×4 (06:35→23:45)
[2021-04-13] MEDS: MEROPENEM 1GM IVPB 100 ML IV SCH ×3 (06:35→21:24)
[2021-04-13] MEDS: FUROSEMIDE 40 MG/4 ML VIAL IV SCH (06:37)
[2021-04-13 08:00] VITALS: BP 109/48
[2021-04-13] MEDS: LISINOPRIL 20 MG TAB PO SCH (10:00)
[2021-04-13] MEDS: ISOSORBIDE MONONITRATE ER 60 MG TAB PO SCH (10:00)
[2021-04-13] MEDS: CARVEDILOL 12.5 MG TAB PO SCH (10:00)
[2021-04-13] MEDS: FAMOTIDINE (10MG/ML) 2ML VL IV SCH ×2 (10:01→21:24)
[2021-04-13] MEDS: ASPirin 81 mg TAB PO SCH (10:01)
[2021-04-13] MEDS: HEPARIN SODIUM (PORCINE) 5000 UNITS/ML 1ML VIAL SC SCH ×2 (10:03→21:26)
[2021-04-13] MEDS ORDERED: VANCOMYCIN PER PHARMACY 1,000 MG IV SCH (11:45)
[2021-04-13 12:00] VITALS: BP 103/52
[2021-04-13] MEDS: VANCOMYCIN 1GM/250ML 250 ML IV SCH (12:24)
[2021-04-13 16:00] VITALS: BP 118/54
[2021-04-13] MEDS: ATORVASTATIN 20 MG TAB PO SCH (21:25)
[2021-04-13] MEDS: CARVEDILOL 3.125 MG TAB PO SCH (21:25)
[2021-04-13 22:00] VITALS: BP 100/40
[2021-04-13 23:37] VITALS: BP 125/65
[2021-04-14 05:00] VITALS: BP 114/50
[2021-04-14 05:28] LABS: Basophils # (auto) 0.1 10 ^3/uL (0-0.2); Basophils % (auto) 0.6 % (0.0-2.0); Eosinophils # (auto) 0 10 ^3/uL (0-0.8); Eosinophils % (auto) 0.2 % (0.0-7.0); Hematocrit 37.1 % (41.0-53.0); Hemoglobin 12.4 g/dL (13.5-17.5); Lymphocytes # (auto) 1.3 10 ^3/uL (0.4-5.4); Lymphocytes % (auto) 9.6 % (10.0-50.0); Mean Corpuscular Hemoglobin 31.3 pg (28.0-32.0); Mean Corpuscular Hgb Conc. 33.3 g/dL (32.0-36.0); Mean Corpuscular Volume 94.1 fL (80.0-100.0); Monocytes # (auto) 1.4 10 ^3/uL (0-1.3); Monocytes % (auto) 10.5 % (0.0-12.0); Neutrophils # (auto) 10.7 10 ^3/uL (1.6-8.6); Neutrophils % (auto) 79.1 % (37.0-80.0); Red Blood Cells 3.95 10^6/uL (4.5-5.90); Red Cell Distribution Width 14.8 % (11.8-14.3); White Blood Cell 13.5 10^3/uL (4.4-10.8)
[2021-04-14 05:39] LABS: INR 1.27 (0.9-1.15); Partial Thromboplastin Time 29.3 sec (23.6-33.0)
[2021-04-14 05:43] LABS: Calcium 8.6 mg/dL (8.5-10.1); Potassium 3.6 mmol/L (3.5-5.1)
[2021-04-14 05:45] LABS: BUN/Creatinine Ratio 41.5; Magnesium 2.6 mg/dL (1.6-2.6)
[2021-04-14] MEDS: InsuLIN REG 1unit/0.01ml Soln (100units/ml) SC SCH ×3 (06:00→17:52)
[2021-04-14] MEDS: MEROPENEM 1GM IVPB 100 ML IV SCH ×3 (06:14→23:28)
[2021-04-14] MEDS: ACCU-CHEK COMFORT CURVE STRIP VI SCH ×3 (06:14→17:52)
[2021-04-14 08:42] VITALS: BP 129/63
[2021-04-14] MEDS ORDERED: HEPARIN SODIUM (PORCINE) 5000 UNITS/ML 1ML VIAL ONE (09:34)
[2021-04-14] MEDS: ASPirin 81 mg TAB PO SCH (09:50)
[2021-04-14] MEDS: FAMOTIDINE (10MG/ML) 2ML VL IV SCH ×2 (09:50→23:29)
[2021-04-14] MEDS: ISOSORBIDE MONONITRATE ER 60 MG TAB PO SCH (09:51)
[2021-04-14] MEDS: CARVEDILOL 3.125 MG TAB PO SCH (09:52)
[2021-04-14] MEDS ORDERED: FUROSEMIDE 20 MG TAB PO SCH (10:00)
[2021-04-14] MEDS: HEPARIN SODIUM (PORCINE) 5000 UNITS/ML 1ML VIAL SC SCH (10:16)
[2021-04-14] MEDS: VANCOMYCIN 1GM/250ML 250 ML IV SCH (12:30)
[2021-04-14 12:42] VITALS: BP 97/45
[2021-04-14 16:31] VITALS: BP 95/50
[2021-04-14 22:00] VITALS: BP 106/52
[2021-04-14] MEDS ORDERED: CARVEDILOL 3.125 MG TAB PO SCH (22:00)
[2021-04-14] MEDS: ATORVASTATIN 20 MG TAB PO SCH (23:29)
[2021-04-15] MEDS: HEPARIN SODIUM (PORCINE) 5000 UNITS/ML 1ML VIAL SC SCH ×3 (00:05→21:07)
[2021-04-15] MEDS: ACCU-CHEK COMFORT CURVE STRIP VI SCH ×5 (00:18→23:36)
[2021-04-15 05:00] VITALS: BP 103/54
[2021-04-15] MEDS: InsuLIN REG 1unit/0.01ml Soln (100units/ml) SC SCH ×5 (06:00→23:36)
[2021-04-15] MEDS: MEROPENEM 1GM IVPB 100 ML IV SCH ×3 (06:32→21:07)
[2021-04-15 09:00] VITALS: BP 110/51
[2021-04-15] MEDS: ASPirin 81 mg TAB PO SCH (10:00)
[2021-04-15] MEDS: ISOSORBIDE MONONITRATE ER 60 MG TAB PO SCH (10:26)
[2021-04-15] MEDS ORDERED: MORPHINE SULFATE INJECTION 2 MG/ML SYRG IV PRN (10:45)
[2021-04-15] MEDS: FAMOTIDINE (10MG/ML) 2ML VL IV SCH ×2 (11:04→21:07)
[2021-04-15] MEDS: VANCOMYCIN 1GM/250ML 250 ML IV SCH (11:06)
[2021-04-15 13:00] VITALS: BP 104/55
[2021-04-15 17:00] VITALS: BP 130/60
[2021-04-15 22:00] VITALS: BP 113/54
[2021-04-16 05:00] VITALS: BP 137/58
[2021-04-16] MEDS: ACCU-CHEK COMFORT CURVE STRIP VI SCH ×2 (06:00→12:00)
[2021-04-16] MEDS: InsuLIN REG 1unit/0.01ml Soln (100units/ml) SC SCH ×2 (06:00→12:00)
[2021-04-16] MEDS: MEROPENEM 1GM IVPB 100 ML IV SCH (06:59)
[2021-04-16 09:00] VITALS: BP 131/55
[2021-04-16] MEDS: ISOSORBIDE MONONITRATE ER 60 MG TAB PO SCH (10:10)
[2021-04-16] MEDS: FAMOTIDINE (10MG/ML) 2ML VL IV SCH (10:10)
[2021-04-16] MEDS: ASPirin 81 mg TAB PO SCH (10:10)
[2021-04-16] MEDS: HEPARIN SODIUM (PORCINE) 5000 UNITS/ML 1ML VIAL SC SCH (10:12)
[2021-04-16 11:45] VITALS: BP 131/55
[2021-04-16] MEDS: VANCOMYCIN 1GM/250ML 250 ML IV SCH (12:00)
== END 2021-04-16 13:05 | disposition hospice, home (50) | DRG 853 ==
LOC: EDBD 21:19 → ER 21:19 → TELE 03-29 02:38 → ICU WEST 03-29 11:50 → TELE-CENTR 04-11 15:15
PROVIDERS: ADMIT Nurse Practitioner Family; ATTEND Internal Medicine Geriatric Medicine
PROC: 5A09357 Assistance with Respiratory Ventilation, Less than 24 Consecutive Hours, Continuous Positive Airway Pressure (ICD-10-PCS; 2021-03-28)
PROC: 5A1955Z Respiratory Ventilation, Greater than 96 Consecutive Hours (ICD-10-PCS; principal; 2021-03-29)
PROC: 0BH17EZ Insertion of Endotracheal Airway into Trachea, Via Natural or Artificial Opening (ICD-10-PCS; 2021-03-29)
PROC: 02HV33Z Insertion of Infusion Device into Superior Vena Cava, Percutaneous Approach (ICD-10-PCS; 2021-03-29)
PROC: B548ZZA Ultrasonography of Superior Vena Cava, Guidance (ICD-10-PCS; 2021-03-29)
PROC: 02703ZZ Dilation of Coronary Artery, One Artery, Percutaneous Approach (ICD-10-PCS; 2021-03-31)
PROC: 4A023N7 Measurement of Cardiac Sampling and Pressure, Left Heart, Percutaneous Approach (ICD-10-PCS; 2021-03-31)
PROC: B2111ZZ Fluoroscopy of Multiple Coronary Arteries using Low Osmolar Contrast (ICD-10-PCS; 2021-03-31)
PROC: B2151ZZ Fluoroscopy of Left Heart using Low Osmolar Contrast (ICD-10-PCS; 2021-03-31)
PROC: 5A09357 Assistance with Respiratory Ventilation, Less than 24 Consecutive Hours, Continuous Positive Airway Pressure (ICD-10-PCS; 2021-04-12)
DX: A41.9 Sepsis, unspecified organism (principal); R65.21 Severe sepsis with septic shock; J96.02 Acute respiratory failure with hypercapnia; J18.9 Pneumonia, unspecified organism; I21.4 Non-ST elevation (NSTEMI) myocardial infarction; N17.0 Acute kidney failure with tubular necrosis; G93.41 Metabolic encephalopathy; J96.01 Acute respiratory failure with hypoxia; J44.1 Chronic obstructive pulmonary disease with (acute) exacerbation; G72.81 Critical illness myopathy; J98.11 Atelectasis; J44.0 Chronic obstructive pulmonary disease with (acute) lower respiratory infection; Z20.822 Contact with and (suspected) exposure to COVID-19; E83.42 Hypomagnesemia; E78.5 Hyperlipidemia, unspecified; F03.90 Unspecified dementia, unspecified severity, without behavioral disturbance, psychotic disturbance, mood disturbance, and anxiety; I10 Essential (primary) hypertension; I25.10 Atherosclerotic heart disease of native coronary artery without angina pectoris; I48.91 Unspecified atrial fibrillation; K72.90 Hepatic failure, unspecified without coma; E87.70 Fluid overload, unspecified; Z82.49 Family history of ischemic heart disease and other diseases of the circulatory system; I25.2 Old myocardial infarction; E83.39 Other disorders of phosphorus metabolism; Z88.0 Allergy status to penicillin
CPT/HCPCS: 31500; 36415; 36600; 70450; 71045; 80048; 80053; 80061; 80202; 81001; 82565; 82570; 82607; 82746; 82805; 82962; 83036; 83735; 83880; 84100; 84156; 84300; 84443; 84484; 85007; 85025; 85027; 85379; 85610; 85730; 87040; 87070; 87077; 87081; 87186; 87205; 87426; 92610; 92920; 93005; 93306; 93458; 93970; 94002; 94003; 94640; 94644; 94660; 95819; 96365; 96375; 97110; 99152; 99153; 99291; G0378; J0330; J0696; J1815; J2185; J2250; J2704; J3490; J7060; Q9967